=== PATIENT | male | born 1995 | race American Indian/Alaskan Native ===

== ENCOUNTER 2017-12-25 14:13 | Emergency (ER) | payer SELFPAY ==
[2017-12-25] MEDS ORDERED: ZOFRAN IV ONE (15:23)
[2017-12-25] MEDS ORDERED: DILAUDID IV ONE (15:23)
[2017-12-25] MEDS ORDERED: NACL 0.9% 1000 ML 1,000 ML ONE (15:34)
--- NOTE | 2017-12-25 15:37 | XRay Report ---
LEFT SHOULDER RADIOGRAPHS INDICATION: Left shoulder deformity. COMPARISON: None similar at this institution. FINDINGS: Frontal and attempted Y views of the left shoulder suggest anteroinferior glenohumeral dislocation. No apparent fracture. Intact AC articulation. Normal imaged lung and ribs. CONCLUSION: Left shoulder dislocation, as described. Thank you for the opportunity to participate in this patient's care.
[2017-12-25] MEDS ORDERED: DIPRIVAN 10 MG/ML IV ONE ×2 (15:50→16:03)
[2017-12-25] MEDS ORDERED: NACL 0.9% 1000 ML 1,000 ML IV ONE (16:04)
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
[2017-12-25 17:00] VITALS: BP 138/70
[2017-12-25] MEDS ORDERED: TORADOL IV ONE (17:02)
--- NOTE | 2017-12-31 15:29 | XRay Report ---
RIGHT SHOULDER, one view: HISTORY: Postreduction x-ray, dislocation. Normal bone mineralization. No acute osseous injury or joint pathology is detected. The soft tissues are unremarkable. IMPRESSION: Normal
== END 2017-12-25 18:42 | disposition home or self-care (01) ==
LOC: ED 14:13
DX: S43.005A Unspecified dislocation of left shoulder joint, initial encounter (principal); F17.200 Nicotine dependence, unspecified, uncomplicated; F12.10 Cannabis abuse, uncomplicated; W50.0XXA Accidental hit or strike by another person, initial encounter; Y93.89 Activity, other specified; Y92.89 Other specified places as the place of occurrence of the external cause; Y99.8 Other external cause status
CPT/HCPCS: 23650; 73020; 73030; 96374; 96375; 99284; J1170; J1885; J2405; J2704; J7030